=== PATIENT | male | born 1935 | race Caucasian/White ===

== ENCOUNTER → 2016-05-25 | Outpatient (CLI) | payer BC, MEDICARE ==
[~2016-05-25] MED LIST: ALLOPURINOL300 MG PO; AMARYL PO; ASPIR-LOW81 MG PO; ASPIRIN E.C. 8181 MG PO; AVAPRO TAB150 MG/TAB PO; AVAPRO75 MG PO; COZAAR 25MG25 MG/TAB PO; DEMADEX5 MG PO; FISH OIL1000 MG PO; FLOMAX 0.40.4 MG/CAP PO; INSLANT SQ; LANTUS100 U/ML SC; LASIX 20MG TABL20 MG PO; LEVEMIR SQ; LOMOTIL 0.025 M1 TAB PO; LORTAB 5/500 501 TAB PO; MIRAPEX0.5 MG PO; NAPROSYN500 MG PO; NITROSTAT0.4 MG SL; PRAVACHOL 40MG40 MG PO; QUALAQUIN324 MG PO; TUMS500 MG PO; VIAGRA100 MG PO; VITAMIN D; VITAMIN D1000 IU PO; VITAMIND3 5000 PO; Vitamin D3 PO; ZOFRAN4 M1 PO
[2016-05-25 13:59] LABS: CALCIUM 9.1 mg/dL (8.4-10.2); CREATININE, serum 2.08 mg/dL (0.66-1.25); POTASSIUM 4.6 mmol/L (3.4-5.0)
== END ==
LOC: COL.LAB 12:13
PROVIDERS: Internal Medicine
DX: E11.21 Type 2 diabetes mellitus with diabetic nephropathy (principal); Z79.4 Long term (current) use of insulin

== ENCOUNTER → 2016-08-17 | Outpatient (CLI) | payer BC, MEDICARE ==
[2016-08-17 15:54] LABS: MEAN CELL VOLUME 93 fl (80.0-100.0); MEAN CORPUSCULAR HGB CONC 32 g/dl (33.0-37.0); MEAN PLATELET VOLUME 11.1 fl (7.4-10.4); PLATELET COUNT 153 K/mm3 (130-400); RED BLOOD COUNT 3.41 M/mm3 (4.20-5.60); REDCELL DISTRIBUTION WIDTH-CV 13.9 % (11.5-14.5); WHITE BLOOD COUNT 5.8 K/mm3 (4.8-10.8)
[2016-08-17 15:56] LABS: HEMATOCRIT 31.7 % (42.0-52.0); HEMOGLOBIN 10.2 g/dl (13.5-18.0); MEAN CORPUSCULAR HEMOGLOBIN 30 pg (27.0-31.0)
[2016-08-17 16:01] LABS: CALCIUM 8.8 mg/dL (8.4-10.2); CREATININE, serum 2.16 mg/dL (0.66-1.25); POTASSIUM 4.2 mmol/L (3.4-5.0)
[2016-08-18 21:11] LABS: PROT-CREAT RATIO, URINE 1.4 (())
== END ==
LOC: COL.LAB 14:50
PROVIDERS: Internal Medicine Nephrology
DX: E11.21 Type 2 diabetes mellitus with diabetic nephropathy (principal); Z79.4 Long term (current) use of insulin; N18.2 Chronic kidney disease, stage 2 (mild); R80.8 Other proteinuria

== ENCOUNTER → 2016-12-21 | Outpatient (CLI) | payer BC, MEDICARE ==
[2016-12-21 19:13] LABS: CREATININE, serum 2.13 mg/dL (0.66-1.25); POTASSIUM 4.9 mmol/L (3.4-5.0)
== END ==
LOC: COL.LAB 17:42
PROVIDERS: Internal Medicine Nephrology
DX: N18.2 Chronic kidney disease, stage 2 (mild) (principal); R80.9 Proteinuria, unspecified

== ENCOUNTER → 2017-03-01 | Outpatient (CLI) | payer BC, MEDICARE ==
[2017-03-01 13:26] LABS: CALCIUM 8.6 mg/dL (8.4-10.2); CREATININE, serum 2.07 mg/dL (0.66-1.25); POTASSIUM 4.4 mmol/L (3.4-5.0)
== END ==
LOC: COL.LAB 12:37
PROVIDERS: Urology
DX: N18.2 Chronic kidney disease, stage 2 (mild) (principal)

== ENCOUNTER → 2017-03-26 | Outpatient (CLI) | payer BC, MEDICARE ==
[2017-03-26 12:43] LABS: CALCIUM 9.1 mg/dL (8.4-10.2)
== END ==
LOC: COL.RAD 11:20
PROVIDERS: Internal Medicine
DX: N26.1 Atrophy of kidney (terminal) (principal); R19.8 Other specified symptoms and signs involving the digestive system and abdomen; N28.1 Cyst of kidney, acquired; K80.80 Other cholelithiasis without obstruction

== ENCOUNTER → 2017-06-15 | Outpatient (CLI) | payer MEDICARE, BC ==
[~2017-06-15] MED LIST changes: -ALLOPURINOL300 MG PO; +APRESOLINE 25MG25 MG PO; +IMODIUM 2MG CAPS2 MG PO; +MELATONIN5 M1 PO; +OMEGA-3 1000 MG1 CAP PO; +PEPTO BISMOL262 MG PO; -PRAVACHOL 40MG40 MG PO; +PRAVACHOL80 MG PO; +ZYLOPRIM 300MG300 MG PO
[2017-06-15 12:46] LABS: BASO % 0.3 % (0.0-2.0); EOS # 0.2 (0.0-0.7); EOS % 3.1 % (0-4.0); GRAN # 5.4 (1.4-6.5); GRAN % 75.6 % (42.2-75.2); LYMPH % 14.1 % (20.0-51.0); MEAN CELL VOLUME 97 fl (80.0-100.0); MEAN CORPUSCULAR HGB CONC 31 g/dl (33.0-37.0); MEAN PLATELET VOLUME 10.8 fl (7.4-10.4); MONO # 0.5 (0.1-0.6); MONO % 6.5 % (1.7-9.3); PLATELET COUNT 143 K/mm3 (130-400); RED BLOOD COUNT 3.28 M/mm3 (4.20-5.60); REDCELL DISTRIBUTION WIDTH-CV 14.7 % (11.5-14.5)
[2017-06-15 12:51] LABS: HEMATOCRIT 31.7 % (42.0-52.0); HEMOGLOBIN 9.8 g/dl (13.5-18.0); MEAN CORPUSCULAR HEMOGLOBIN 30 pg (27.0-31.0)
[2017-06-15 13:01] LABS: ALBUMIN 3.6 gm/dL (3.5-5.0); BILIRUBIN,TOTAL 0.5 mg/dL (0.0-1.0); CALCIUM 9.1 mg/dL (8.4-10.2); CHOLESTEROL RISK RATIO 2.5; CREATININE, serum 2.15 mg/dL (0.66-1.25); POTASSIUM 4.7 mmol/L (3.4-5.0); TOTAL PROTEIN 6.9 gm/dL (6.4-8.2); URIC ACID 3.4 mg/dL (3.5-8.5)
[2017-06-15 19:25] LABS: MUCOUS Present /lpf; PH 5 (5-8); SQUAMOUS EPITHELIAL 0-2 /hpf; URINE APPEARANCE Clear; URINE BACTERIA Rare /hpf; URINE BILIRUBIN Negative (NEGATIVE); URINE BLOOD Negative (NEGATIVE); URINE COLOR Straw; URINE GLUCOSE Negative (NEGATIVE); URINE KETONE Negative (NEGATIVE); URINE LEUKOCYTE ESTERASE 1+ (NEGATIVE); URINE NITRATE Negative (NEGATIVE); URINE PROTEIN(semi-quant) 2+ (NEGATIVE); URINE UROBILINOGEN Negative (NEGATIVE); URINE WBC 20-50 /hpf
[2017-06-15 19:28] LABS: COLLECTION METHOD CLEAN CATCH
[2017-06-15 23:54] LABS: URINE MICROALBUMIN 95.5 mg/dL (0.0-1.7)
== END ==
LOC: COL.LAB 12:02
PROVIDERS: Internal Medicine Nephrology
DX: M10.9 Gout, unspecified (principal); K52.832 Lymphocytic colitis; E78.00 Pure hypercholesterolemia, unspecified; E11.21 Type 2 diabetes mellitus with diabetic nephropathy; Z79.4 Long term (current) use of insulin; I25.10 Atherosclerotic heart disease of native coronary artery without angina pectoris; N18.4 Chronic kidney disease, stage 4 (severe); N40.0 Benign prostatic hyperplasia without lower urinary tract symptoms; I87.2 Venous insufficiency (chronic) (peripheral)

== ENCOUNTER → 2017-06-15 | Outpatient (CLI) | payer MEDICARE, BC ==
[2017-06-15 13:02] LABS: CALCIUM 9.1 mg/dL (8.4-10.2); CREATININE, serum 2.17 mg/dL (0.66-1.25); POTASSIUM 4.8 mmol/L (3.4-5.0)
== END ==
LOC: COL.LAB 11:59
PROVIDERS: Internal Medicine
DX: M10.9 Gout, unspecified (principal); E11.21 Type 2 diabetes mellitus with diabetic nephropathy; E78.00 Pure hypercholesterolemia, unspecified; I25.10 Atherosclerotic heart disease of native coronary artery without angina pectoris; N18.4 Chronic kidney disease, stage 4 (severe); N40.0 Benign prostatic hyperplasia without lower urinary tract symptoms; I87.2 Venous insufficiency (chronic) (peripheral); K52.832 Lymphocytic colitis; N18.2 Chronic kidney disease, stage 2 (mild); Z79.4 Long term (current) use of insulin

== ENCOUNTER → 2017-07-22 | Outpatient (CLI) | payer MEDICARE, BC ==
[2017-07-22 10:14] LABS: CALCIUM 8.8 mg/dL (8.4-10.2); CREATININE, serum 2.3 mg/dL (0.66-1.25); POTASSIUM 5.2 mmol/L (3.4-5.0)
== END ==
LOC: COL.LAB 09:36
PROVIDERS: Internal Medicine Nephrology
DX: N18.2 Chronic kidney disease, stage 2 (mild) (principal)

== ENCOUNTER → 2017-10-18 | Outpatient (CLI) | payer MEDICARE, BC | LOC: COL.LAB 15:10 | DX: E11.21 Type 2 diabetes mellitus with diabetic nephropathy (principal) ==

== ENCOUNTER → 2017-10-18 | Outpatient (CLI) | payer MEDICARE, BC ==
[2017-10-18 16:06] LABS: CALCIUM 8.9 mg/dL (8.4-10.2); CREATININE, serum 2.72 mg/dL (0.66-1.25); POTASSIUM 5.3 mmol/L (3.4-5.0)
== END ==
LOC: COL.LAB 15:08
PROVIDERS: Internal Medicine Nephrology
DX: N18.2 Chronic kidney disease, stage 2 (mild) (principal)

== ENCOUNTER → 2017-12-06 | Outpatient (CLI) | payer MEDICARE, BC ==
[2017-12-06 14:13] LABS: CALCIUM 8.6 mg/dL (8.4-10.2); CREATININE, serum 2.33 mg/dL (0.66-1.25); POTASSIUM 4.5 mmol/L (3.4-5.0)
== END ==
LOC: COL.LAB 13:40
PROVIDERS: Internal Medicine Nephrology
DX: N18.2 Chronic kidney disease, stage 2 (mild) (principal)

== ENCOUNTER → 2018-02-16 | Outpatient (CLI) | payer MEDICARE, BC ==
[2018-02-16 12:32] LABS: HEMATOCRIT 29.9 % (42.0-52.0); HEMOGLOBIN 9.6 g/dl (13.5-18.0)
[2018-02-16 12:39] LABS: CALCIUM 8.7 mg/dL (8.4-10.2); CREATININE, serum 2.42 mg/dL (0.66-1.25); POTASSIUM 4.6 mmol/L (3.4-5.0)
[2018-02-16 13:12] LABS: URINE PROTEIN:CREAT RATIO 4.02 (0.00-0.14)
== END ==
LOC: COL.LAB 11:41
PROVIDERS: Internal Medicine Nephrology
DX: E11.22 Type 2 diabetes mellitus with diabetic chronic kidney disease (principal); I12.9 Hypertensive chronic kidney disease with stage 1 through stage 4 chronic kidney disease, or unspecified chronic kidney disease; N18.2 Chronic kidney disease, stage 2 (mild); E11.21 Type 2 diabetes mellitus with diabetic nephropathy; R60.0 Localized edema

== ENCOUNTER → 2018-03-16 | Outpatient (CLI) | payer MEDICARE, BC ==
[2018-03-16 10:46] LABS: CALCIUM 8.7 mg/dL (8.4-10.2); CREATININE, serum 2.48 mg/dL (0.66-1.25); POTASSIUM 4.6 mmol/L (3.4-5.0)
== END ==
LOC: COL.LAB 09:02
PROVIDERS: Internal Medicine Nephrology
DX: E87.5 Hyperkalemia (principal)

== ENCOUNTER → 2018-04-14 | Outpatient (CLI) | payer MEDICARE, BC ==
[2018-04-14 08:31] LABS: CALCIUM 8.7 mg/dL (8.4-10.2); CREATININE, serum 2.53 mg/dL (0.66-1.25); POTASSIUM 5.2 mmol/L (3.4-5.0)
== END ==
LOC: COL.LAB 07:33
PROVIDERS: Internal Medicine Nephrology
DX: E87.5 Hyperkalemia (principal)

== ENCOUNTER → 2018-05-06 | Outpatient (CLI) | payer MEDICARE, BC | LOC: COL.RAD 07:36 | DX: R11.10 Vomiting, unspecified (principal); R10.9 Unspecified abdominal pain | CPT/HCPCS: A9541 ==

== ENCOUNTER → 2018-05-18 | Outpatient (CLI) | payer MEDICARE, BC ==
[~2018-05-18] MED LIST changes: +CEPHALEXIN500 M1 PO; +NORVASC2.5 MG PO; +SODIUM BICARBO650 MG PO; +TOPROL XL 50MG50 MG PO; +ULTRAM 50MG TAB50 MG PO; +VELTASSA8.4 GM PO
[2018-05-18 12:58] LABS: CALCIUM 8.6 mg/dL (8.4-10.2); CREATININE, serum 2.6 mg/dL (0.66-1.25)
[2018-05-18 12:58] LABS: URINE PROTEIN:CREAT RATIO 2.49 (0.00-0.14)
== END ==
LOC: COL.LAB 11:48
PROVIDERS: Internal Medicine Nephrology
DX: N18.2 Chronic kidney disease, stage 2 (mild) (principal); I12.9 Hypertensive chronic kidney disease with stage 1 through stage 4 chronic kidney disease, or unspecified chronic kidney disease; R80.8 Other proteinuria

== ENCOUNTER → 2018-06-20 | Outpatient (CLI) | payer MEDICARE, BC ==
[2018-06-20 14:49] LABS: HEMATOCRIT 25.9 % (42.0-52.0); HEMOGLOBIN 8.2 g/dl (13.5-18.0)
[2018-06-20 14:54] LABS: CALCIUM 8.8 mg/dL (8.4-10.2); CREATININE, serum 2.81 mg/dL (0.66-1.25); POTASSIUM 4.9 mmol/L (3.4-5.0)
== END ==
LOC: COL.LAB 14:13
PROVIDERS: Internal Medicine Nephrology
DX: I12.9 Hypertensive chronic kidney disease with stage 1 through stage 4 chronic kidney disease, or unspecified chronic kidney disease (principal); N18.2 Chronic kidney disease, stage 2 (mild); D63.1 Anemia in chronic kidney disease

== ENCOUNTER 2018-07-21 14:59 | Outpatient (CLI) | payer MEDICARE, BC ==
[2018-07-21 15:46] LABS: HEMATOCRIT 29.1 % (42.0-52.0); HEMOGLOBIN 9.1 g/dl (13.5-18.0)
== END 2018-07-21 16:44 | disposition home or self-care (01) ==
LOC: COL.LAB 14:59
PROVIDERS: Internal Medicine Nephrology
DX: N18.3 Chronic kidney disease, stage 3 (moderate) (principal); D63.1 Anemia in chronic kidney disease

== ENCOUNTER → 2018-07-30 | Outpatient (CLI) | payer MEDICARE, BC ==
[2018-07-30 10:27] LABS: HEMATOCRIT 31.8 % (42.0-52.0); HEMOGLOBIN 9.8 g/dl (13.5-18.0)
[2018-07-30 10:50] LABS: CHOLESTEROL RISK RATIO 2.2; URIC ACID 3.7 mg/dL (3.5-8.5)
[2018-08-02 21:00] LABS: CALCIUM 9.1 mg/dL (8.4-10.2); CREATININE, serum 2.8 mg/dL (0.66-1.25); POTASSIUM 5.2 mmol/L (3.4-5.0)
== END ==
LOC: COL.LAB 09:08
PROVIDERS: Internal Medicine Nephrology
DX: N18.3 Chronic kidney disease, stage 3 (moderate) (principal); D63.1 Anemia in chronic kidney disease; E11.21 Type 2 diabetes mellitus with diabetic nephropathy; I12.9 Hypertensive chronic kidney disease with stage 1 through stage 4 chronic kidney disease, or unspecified chronic kidney disease; Z79.4 Long term (current) use of insulin

== ENCOUNTER → 2018-07-30 | Outpatient (CLI) | payer MEDICARE, BC | LOC: COL.LAB 09:06 | DX: E11.21 Type 2 diabetes mellitus with diabetic nephropathy (principal); Z79.4 Long term (current) use of insulin; I10 Essential (primary) hypertension ==

== ENCOUNTER → 2018-08-22 | Outpatient (CLI) | payer OTHER, MEDICARE, BC ==
[2018-08-22 20:38] LABS: MEAN CELL VOLUME 97 fl (80.0-100.0); MEAN CORPUSCULAR HGB CONC 31 g/dl (33.0-37.0); MEAN PLATELET VOLUME 10.5 fl (7.4-10.4); PLATELET COUNT 140 K/mm3 (130-400); RED BLOOD COUNT 3.26 M/mm3 (4.20-5.60); REDCELL DISTRIBUTION WIDTH-CV 15.2 % (11.5-14.5)
[2018-08-22 20:42] LABS: CALCIUM 8.7 mg/dL (8.4-10.2); CREATININE, serum 3.19 (0.66-1.25)
[2018-08-22 20:45] LABS: HEMATOCRIT 31.6 % (42.0-52.0); HEMOGLOBIN 9.8 g/dl (13.5-18.0); MEAN CORPUSCULAR HEMOGLOBIN 30 pg (27.0-31.0)
[2018-08-23 10:59] LABS: ALBUMIN 3.2 gm/dL (3.5-5.0); BILIRUBIN UNCONJUGATED 0.1 mg/dL (0.0-1.1); BILIRUBIN,DIRECT 0.1 mg/dL (0.0-0.4); BILIRUBIN,TOTAL 0.3 mg/dL (0.0-1.0); TOTAL PROTEIN 6.6 gm/dL (6.4-8.2)
== END ==
LOC: COL.LAB 19:36 → COL.RAD 19:36
PROVIDERS: Internal Medicine Interventional Cardiology
DX: I82.A13 Acute embolism and thrombosis of axillary vein, bilateral (principal)

== ENCOUNTER → 2018-08-24 | Outpatient (CLI) | payer MEDICARE, BC ==
[2018-08-25 12:16] LABS: ALBUMIN 3.6 gm/dL (3.5-5.0); CREATININE, serum 2.86 (0.66-1.25); PHOSPHOROUS 4.5 mg/dL (2.5-4.5); POTASSIUM 5.6 mmol/L (3.4-5.0)
== END ==
LOC: COL.LAB 11:37
PROVIDERS: Internal Medicine Nephrology
DX: N18.4 Chronic kidney disease, stage 4 (severe) (principal)

== ENCOUNTER → 2018-09-05 | Outpatient (CLI) | payer MEDICARE, BC ==
[2018-09-05 15:11] LABS: ALBUMIN 3.3 gm/dL (3.5-5.0); CALCIUM 8.6 mg/dL (8.4-10.2); CREATININE, serum 2.93 (0.66-1.25); PHOSPHOROUS 3.8 mg/dL (2.5-4.5); POTASSIUM 4.3 mmol/L (3.4-5.0)
== END ==
LOC: COL.LAB 14:18
PROVIDERS: Internal Medicine Nephrology
DX: I12.9 Hypertensive chronic kidney disease with stage 1 through stage 4 chronic kidney disease, or unspecified chronic kidney disease (principal); N18.4 Chronic kidney disease, stage 4 (severe)

== ENCOUNTER 2018-09-14 15:30 | Outpatient (RCR) | payer OTHER, MEDICARE, BC ==
[2018-06-23 14:50] VITALS: BP 118/46; PULSE 82; TEMP 97.4
[2018-07-08 15:00] LABS: HEMOGLOBIN 9.2 g/dl (13.5-18.0)
[2018-07-08 15:01] LABS: HEMATOCRIT 28.9 % (42.0-52.0)
[2018-07-21 16:34] VITALS: BP 136/59; PULSE 77; TEMP 98
[2018-08-03 15:46] LABS: HEMATOCRIT 28.9 % (42.0-52.0); HEMOGLOBIN 9.3 g/dl (13.5-18.0)
[2018-08-03 16:08] VITALS: BP 128/53; PULSE 68; TEMP 97.8
[2018-08-18 15:17] LABS: HEMATOCRIT 32.2 % (42.0-52.0)
[2018-08-18 16:21] VITALS: BP 168/64; PULSE 83; TEMP 97.4
[2018-09-01 15:31] VITALS: BP 149/70; PULSE 83; TEMP 98.3
[~2018-09-14] VITALS: Ht 180.3 cm; Wt 90.0 kg
[2018-09-14 15:40] VITALS: BP 158/61; PULSE 71; TEMP 98.7
[2018-09-14 15:46] LABS: HEMATOCRIT 33.1 % (42.0-52.0); HEMOGLOBIN 10.5 g/dl (13.5-18.0)
== END 2018-09-21 | disposition home or self-care (01) ==
LOC: EUO
PROVIDERS: Internal Medicine Nephrology
DX: N18.3 Chronic kidney disease, stage 3 (moderate) (principal); D63.1 Anemia in chronic kidney disease
CPT/HCPCS: J0881; J2916

== ENCOUNTER → 2018-10-24 | Outpatient (CLI) | payer MEDICARE, BC ==
[2018-10-24 16:16] LABS: ALBUMIN 3.2 gm/dL (3.5-5.0); CALCIUM 8.8 mg/dL (8.4-10.2); CREATININE, serum 3.09 (0.66-1.25); POTASSIUM 4.9 mmol/L (3.4-5.0)
== END ==
LOC: COL.LAB 15:15 → ZCOL.LAB 15:15
PROVIDERS: Internal Medicine Nephrology
DX: N18.4 Chronic kidney disease, stage 4 (severe) (principal); R53.83 Other fatigue

== ENCOUNTER 2018-12-10 19:44 | Inpatient (IN) | payer MEDICARE, BC ==
[~2018-12-10] VITALS: Ht 177.8 cm; Wt 87.4 kg
[2018-12-10] MEDS ORDERED: ELIQUIS 2.5 PO (20:21)
[2018-12-10] MEDS ORDERED: APRESOLINE 25MG25 MG PO (20:28)
[2018-12-10 20:39] LABS: HEMOGLOBIN 10.6 g/dl (13.5-18.0); MEAN CELL VOLUME 97 fl (80.0-100.0); MEAN CORPUSCULAR HEMOGLOBIN 30 pg (27.0-31.0); MEAN CORPUSCULAR HGB CONC 31 g/dl (33.0-37.0); MEAN PLATELET VOLUME 11.7 fl (7.4-10.4); PLATELET COUNT 139 K/mm3 (130-400); RED BLOOD COUNT 3.54 M/mm3 (4.20-5.60); REDCELL DISTRIBUTION WIDTH-CV 16.7 % (11.5-14.5)
[2018-12-10 20:46] LABS: HEMATOCRIT 34.4 % (42.0-52.0)
[2018-12-10 20:48] LABS: INR 1.5 (0.8-3.0); PROTHROMBIN TIME 17.4 SECONDS (9.7-12.8)
[2018-12-10 20:52] LABS: BILIRUBIN,TOTAL 0.8 mg/dL (0.0-1.0); CALCIUM 8.5 mg/dL (8.4-10.2); CREATININE, serum 2.65 (0.66-1.25); TOTAL PROTEIN 6.4 gm/dL (6.4-8.2)
[2018-12-10 21:20] LABS: ANISOCYTOSIS 1+; BAND 3 % (0-10); LYMPHOCYTE 3 % (20.0-51.0); NEUTROPHILS 93 % (42.0-75.2); PLATELET ESTIMATE NORMAL (NORMAL)
[2018-12-10 21:31] LABS: COLLECTION METHOD CLEAN CATCH
[2018-12-10 21:39] LABS: MUCOUS Present /lpf; PH 5 (5-8); SQUAMOUS EPITHELIAL 0-2 /hpf; URINE APPEARANCE Clear; URINE BACTERIA Rare /hpf; URINE BILIRUBIN Negative (NEGATIVE); URINE BLOOD Negative (NEGATIVE); URINE COLOR Yellow; URINE GLUCOSE 1+ (NEGATIVE); URINE KETONE Negative (NEGATIVE); URINE LEUKOCYTE ESTERASE Negative (NEGATIVE); URINE NITRATE Negative (NEGATIVE); URINE PROTEIN(semi-quant) 3+ (NEGATIVE); URINE UROBILINOGEN Negative (NEGATIVE)
[2018-12-11] VITALS (7 sets, daily range): BP systolic 137–148; BP diastolic 26–60; PULSE 61–75; TEMP 97.6–98.5
--- NOTE | 2018-12-11 00:50 | NUR ---
pt arrived to medical unit. a+ox4. oriented to room and staff. given sandwich box reports no needs at thsi time.
[2018-12-11] MEDS ORDERED: CILOXAN .3% EY2.5 ML (01:37)
[2018-12-11 04:16] LABS: C-REACTIVE PROTEIN 4.3 mg/dL (0.0-0.9)
[2018-12-11 06:32] LABS: BASO % 0.2 % (0.0-2.0); GRAN # 9.3 (1.4-6.5); GRAN % 89.3 % (42.2-75.2); LYMPH # 0.5 (1.2-3.4); LYMPH % 4.9 % (20.0-51.0); MEAN CELL VOLUME 97 fl (80.0-100.0); MEAN CORPUSCULAR HEMOGLOBIN 29 pg (27.0-31.0); MEAN CORPUSCULAR HGB CONC 31 g/dl (33.0-37.0); MEAN PLATELET VOLUME 11.6 fl (7.4-10.4); MONO # 0.5 (0.1-0.6); MONO % 5.1 % (1.7-9.3); PLATELET COUNT 121 K/mm3 (130-400)
--- NOTE | 2018-12-11 06:39 | NUR ---
PT RESTING OFF AND ON THROUGHOUT NIGHT WITH AT BEDSIDE. A+OX4. NO PAIN. NO NAUSEA. WEAKNESS AND DROWSINESS REPORTED. IV TO THE RIGHT UPPER ARM FLUSHES WELL, NO REDNESS, NO SWELLING. IV FLUIDS RUNNING AT ORDERED RATE. HEART RRR. LUNG BASES DIMINISHES. BOWEL SOUNDS HEAD THROUGHOUT. RIGHT LOWER EXTREMITY 2+ EDEMA NOTED WITH REDNESS. LEFT LOWER EX 1+ EDEMA NOTED. NO NEEDS AT THIS TIME. CALL LIGHT IN REACH.
[2018-12-11 06:41] LABS: ALBUMIN 2.7 gm/dL (3.5-5.0); BILIRUBIN,TOTAL 0.8 mg/dL (0.0-1.0); CALCIUM 8.2 mg/dL (8.4-10.2); CREATININE, serum 2.63 (0.66-1.25); POTASSIUM 4.9 mmol/L (3.4-5.0); TOTAL PROTEIN 5.8 gm/dL (6.4-8.2)
[2018-12-11 06:54] LABS: HEMATOCRIT 32.8 % (42.0-52.0)
[2018-12-11 07:17] LABS: TROPONIN-I 6 HR POST INITIAL 0.132 ng/mL (0.000-0.034)
--- NOTE | 2018-12-11 11:47 | NUR ---
Plan to retun home with Angela Landline. Patient reports that they live locally and the pateint uses a cane and has a pacemaker. Patient reports PCP as Dr. Garcias with [facility] in Feb. Patient denies having or wanting a DPOA. Patient reports that his Son Dr. Oneil is heis EMR contact at . Patient indicated that the RX is obtained at [facility]. Patient declined [facility]. Will continue to follow care if need arise.
--- NOTE | 2018-12-11 18:30 | NUR ---
Patient has been doing well today. Minimal complaints of pain. No complaints of nausea. His pain is mostly in his RLE from chronic pain. He is aware he is NPO after midnight and has not had any caffiene since lunch time when his son had already given a coke for lunch. Patient sat up in the most the am but has been sleeping most the afternoon. No other changes at this time. Call light within reach.
[2018-12-12] VITALS (8 sets, daily range): BP systolic 131–171; BP diastolic 45–91; PULSE 71–83; TEMP 97.4–98
[2018-12-12 06:34] LABS: BASO % 0.2 % (0.0-2.0); EOS # 0.2 (0.0-0.7); EOS % 3.2 % (0-4.0); GRAN # 4.3 (1.4-6.5); GRAN % 75.8 % (42.2-75.2); LYMPH # 0.7 (1.2-3.4); MEAN CELL VOLUME 96 fl (80.0-100.0); MEAN CORPUSCULAR HGB CONC 31 g/dl (33.0-37.0); MEAN PLATELET VOLUME 11.7 fl (7.4-10.4); MONO # 0.5 (0.1-0.6); MONO % 8.3 % (1.7-9.3); PLATELET COUNT 110 K/mm3 (130-400); REDCELL DISTRIBUTION WIDTH-CV 16.6 % (11.5-14.5)
[2018-12-12 06:39] LABS: ALBUMIN 2.4 gm/dL (3.5-5.0); BILIRUBIN,TOTAL 0.4 mg/dL (0.0-1.0); CREATININE, serum 2.61 (0.66-1.25); HEMATOCRIT 30.6 % (42.0-52.0); HEMOGLOBIN 9.5 g/dl (13.5-18.0); MEAN CORPUSCULAR HEMOGLOBIN 30 pg (27.0-31.0); POTASSIUM 4.6 mmol/L (3.4-5.0); TOTAL PROTEIN 5.4 gm/dL (6.4-8.2)
--- NOTE | 2018-12-12 08:10 | NUR ---
Pt left for tianna scan at this time.
--- NOTE | 2018-12-12 11:00 | NUR ---
Pt assessment complete. Pt back from procedures at this time. He denies any N/V/D. Pt denies any pain. Breathing even and unlabored on RA. Pt states he is feeling much better than at admission. POC discussed with patient who verbalizes understanding. IVF connected, no needs at this time. Call light within reach.
[2018-12-12] MEDS ORDERED: IMDUR 30MG30 MG/TAB PO (16:23)
[2018-12-12] MEDS ORDERED: TOPROL XL 25MG25 MG PO (16:23)
[2018-12-12] MEDS ORDERED: OMNICEF 300MG300 MG PO (16:24)
--- NOTE | 2018-12-12 17:57 | NUR ---
Discharge paperwork and instructions reviewed with patient. All questions answered at this time. IV to RUE dc'd catheter tip intact. Pt walked out of facility at this time.
[2019-01-17] MEDS ORDERED: IMDUR 30MG30 MG/TAB PO (17:47)
[2019-01-17] MEDS ORDERED: TOPROL XL 25MG25 MG PO (17:48)
[2019-01-17] MEDS ORDERED: SODIUM BICARBO650 MG PO (17:57)
== END 2018-12-12 17:58 | disposition home or self-care (01) | DRG 872 ==
LOC: COL.ER 19:44 → MEDICAL 23:22
PROVIDERS: Emergency Medicine; Nurse Practitioner Family; ADMIT Student in an Organized Health Care Education/Training Program
DX: A41.9 Sepsis, unspecified organism (principal); L03.115 Cellulitis of right lower limb; J98.11 Atelectasis; J90 Pleural effusion, not elsewhere classified; N18.4 Chronic kidney disease, stage 4 (severe); E87.2 Acidosis; I42.9 Cardiomyopathy, unspecified; I50.22 Chronic systolic (congestive) heart failure; I13.0 Hypertensive heart and chronic kidney disease with heart failure and stage 1 through stage 4 chronic kidney disease, or unspecified chronic kidney disease; E78.5 Hyperlipidemia, unspecified; I25.10 Atherosclerotic heart disease of native coronary artery without angina pectoris; I48.91 Unspecified atrial fibrillation; E11.22 Type 2 diabetes mellitus with diabetic chronic kidney disease; N40.0 Benign prostatic hyperplasia without lower urinary tract symptoms; M10.9 Gout, unspecified; I87.2 Venous insufficiency (chronic) (peripheral); E11.51 Type 2 diabetes mellitus with diabetic peripheral angiopathy without gangrene; E11.21 Type 2 diabetes mellitus with diabetic nephropathy; I44.1 Atrioventricular block, second degree; E87.5 Hyperkalemia; D63.1 Anemia in chronic kidney disease; M54.12 Radiculopathy, cervical region; R53.1 Weakness; Z79.82 Long term (current) use of aspirin; Z79.4 Long term (current) use of insulin; Z79.01 Long term (current) use of anticoagulants; Z95.0 Presence of cardiac pacemaker; Z95.1 Presence of aortocoronary bypass graft; Z87.891 Personal history of nicotine dependence; Z88.2 Allergy status to sulfonamides; Z88.0 Allergy status to penicillin
CPT/HCPCS: 99222-AI; 99239; A9500; J2185; J2785; J3370; J7030; J7050

== ENCOUNTER 2018-12-19 15:00 | Outpatient (RCR) | payer MEDICARE, BC ==
[2018-09-28 15:22] LABS: HEMATOCRIT 34.6 % (42.0-52.0)
[2018-09-28 15:29] VITALS: BP 151/57; PULSE 70; TEMP 97.2
[2018-10-20 16:20] VITALS: BP 128/66; PULSE 80; TEMP 97.4
[2018-11-03 14:52] VITALS: BP 142/56; PULSE 72; TEMP 98
[2018-11-03 15:21] LABS: HEMOGLOBIN 10.2 g/dl (13.5-18.0)
[2018-11-03 15:24] LABS: HEMATOCRIT 33.4 % (42.0-52.0)
[2018-11-17 15:16] VITALS: BP 140/64; PULSE 73; TEMP 98
[2018-12-01 15:44] VITALS: BP 1141/93; PULSE 77; TEMP 98
[2018-12-01 16:30] LABS: HEMATOCRIT 31.5 % (42.0-52.0); HEMOGLOBIN 9.7 g/dl (13.5-18.0)
[~2018-12-19] VITALS: Ht 180.3 cm; Wt 84.5 kg
[~2018-12-19 15:00] MED LIST changes: +CILOXAN .3% EY2.5 ML; +ELIQUIS 2.5 PO; +IMDUR 30MG30 MG/TAB PO; +OMNICEF 300MG300 MG PO; +TOPROL XL 25MG25 MG PO
[2018-12-19 15:07] LABS: HEMATOCRIT 30.4 % (42.0-52.0); HEMOGLOBIN 9.4 g/dl (13.5-18.0)
[2018-12-19 15:48] VITALS: BP 110/88; PULSE 72; TEMP 98.6
[2018-12-19 15:56] LABS: ALBUMIN 2.8 gm/dL (3.5-5.0); CREATININE, serum 2.71 (0.66-1.25); PHOSPHOROUS 5.5 mg/dL (2.5-4.5)
[2019-01-17] MEDS ORDERED: IMDUR 30MG30 MG/TAB PO (17:47)
[2019-01-17] MEDS ORDERED: TOPROL XL 25MG25 MG PO (17:48)
[2019-01-17] MEDS ORDERED: SODIUM BICARBO650 MG PO (17:57)
== END 2018-12-27 | disposition home or self-care (01) ==
LOC: EUO
PROVIDERS: Internal Medicine Nephrology
DX: I12.9 Hypertensive chronic kidney disease with stage 1 through stage 4 chronic kidney disease, or unspecified chronic kidney disease (principal); N18.4 Chronic kidney disease, stage 4 (severe); D63.1 Anemia in chronic kidney disease; R60.0 Localized edema; Z79.899 Other long term (current) drug therapy
CPT/HCPCS: J0881

== ENCOUNTER 2019-01-31 11:00 | Outpatient (RCR) | payer MEDICARE, BC ==
[2019-01-02 15:20] LABS: HEMOGLOBIN 10.3 g/dl (13.5-18.0)
[2019-01-02 15:29] LABS: HEMATOCRIT 33.6 % (42.0-52.0)
[2019-01-02 16:53] VITALS: BP 146/66; PULSE 76; TEMP 97.2
[2019-01-17 14:29] VITALS: BP 113/67; PULSE 63; TEMP 97.5
[~2019-01-31] VITALS: Ht 180.3 cm; Wt 83.1 kg
[2019-01-31 11:05] LABS: HEMOGLOBIN 11.2 g/dl (13.5-18.0)
[2019-01-31 11:06] LABS: HEMATOCRIT 36.2 % (42.0-52.0)
[2019-01-31 11:08] VITALS: BP 128/59; PULSE 76; TEMP 97.3
--- NOTE | 2019-01-31 11:53 | NUR ---
Dr. Delacruz at pt's bs, verbal order for 40 mcg aranesp sq. order entered and pharmacy called.
--- NOTE | 2019-01-31 12:45 | NUR ---
Pt ambulatory to exit with son and , Per Written orders from Dr. Delacruz, pt was scheduled for next appointment in 1 month 02/28/19 at 11:00... card given to .
== END 2019-01-31 12:50 | disposition home or self-care (01) ==
LOC: EUO 11:00
PROVIDERS: Internal Medicine Nephrology
DX: N18.3 Chronic kidney disease, stage 3 (moderate) (principal); D63.1 Anemia in chronic kidney disease; Z79.899 Other long term (current) drug therapy
CPT/HCPCS: J0881

== ENCOUNTER 2019-02-28 11:25 | Outpatient (CLI) | payer MEDICARE, BC ==
[~2019-02-28] VITALS: Ht 180.3 cm; Wt 83.0 kg
[2019-02-28 11:39] LABS: HEMOGLOBIN 10.6 g/dl (13.5-18.0)
[2019-02-28 11:40] LABS: HEMATOCRIT 34.1 % (42.0-52.0)
[2019-02-28 11:47] VITALS: BP 150/69; PULSE 61; TEMP 97.5
[2019-02-28] MEDS ORDERED: LEVEMIR SQ (12:10)
== END 2019-02-28 12:27 | disposition home or self-care (01) ==
LOC: EUO 11:25
PROVIDERS: Internal Medicine Nephrology
DX: D63.1 Anemia in chronic kidney disease (principal); N18.4 Chronic kidney disease, stage 4 (severe); Z79.899 Other long term (current) drug therapy
CPT/HCPCS: J0881

== ENCOUNTER 2019-04-25 13:33 | Outpatient (CLI) | payer MEDICARE, BC ==
[2019-04-25 14:08] LABS: HEMOGLOBIN 10.1 g/dl (13.5-18.0)
[2019-04-25 14:09] LABS: HEMATOCRIT 31.6 % (42.0-52.0)
[2019-04-25 14:14] VITALS: BP 143/69; PULSE 82; TEMP 97.6
[2019-04-25] MEDS ORDERED: ROCALTROL0.5 MCG PO (15:02)
== END 2019-04-25 15:22 | disposition home or self-care (01) ==
LOC: EUO 13:33
PROVIDERS: Internal Medicine Nephrology
DX: N18.4 Chronic kidney disease, stage 4 (severe) (principal); D63.1 Anemia in chronic kidney disease; E11.21 Type 2 diabetes mellitus with diabetic nephropathy; Z79.4 Long term (current) use of insulin
CPT/HCPCS: J0881

== ENCOUNTER → 2019-05-15 | Outpatient (CLI) | payer MEDICARE, BC ==
[~2019-05-15] MED LIST changes: +ROCALTROL0.5 MCG PO
== END ==
LOC: COL.VAS 08:59
DX: N18.4 Chronic kidney disease, stage 4 (severe) (principal)

== ENCOUNTER 2019-05-22 14:45 | Outpatient (CLI) | payer MEDICARE, BC ==
[2019-05-22 15:12] LABS: HEMOGLOBIN 10.7 g/dl (13.5-18.0)
[2019-05-22 15:13] VITALS: BP 142/60; PULSE 58; TEMP 97.4
[2019-05-22 15:16] LABS: HEMATOCRIT 33.8 % (42.0-52.0)
== END 2019-05-22 15:48 | disposition home or self-care (01) ==
LOC: EUO 14:45
PROVIDERS: Internal Medicine Nephrology
DX: D63.1 Anemia in chronic kidney disease (principal); N18.4 Chronic kidney disease, stage 4 (severe); Z79.899 Other long term (current) drug therapy
CPT/HCPCS: J0881

== ENCOUNTER 2019-06-13 10:20 | Day surgery (SDC) | payer MEDICARE, BC ==
[~2019-06-13] VITALS: Ht 177.8 cm; Wt 83.4 kg
[2019-06-13 10:51] VITALS: BP 140/69; PULSE 83; TEMP 97.6
[2019-06-13 11:22] LABS: CALCIUM 8.9 mg/dL (8.4-10.2); CREATININE, serum 2.96 (0.66-1.25); POTASSIUM 4.2 mmol/L (3.4-5.0)
[2019-06-13] MEDS ORDERED: ARANESP0.06 MG/0. SQ (11:29)
[2019-06-13] MEDS ORDERED: IMODIUM 2MG CAPS2 MG PO (11:31)
[2019-06-13] MEDS ORDERED: CALCITRIOL PO (11:32)
--- NOTE | 2019-06-13 12:30 | NUR ---
Patient assisted up to the bathroom with use of cane. Remains NPO and awaits surgery. Family in the room.
[2019-06-13 16:00] VITALS: BP 144/54; PULSE 60; TEMP 97.2
--- NOTE | 2019-06-13 16:00 | NUR ---
TO RM 4 PER CART FROM OR. ALERT ORIENTED X3, TALKING TO STAFF,SON AND . RECEIVED ICE CHIPS. DRESSING OVER FISTULA SITE ON L ARM. DENIES PAIN OR DISCOMFORT. DENIES NAUSEA OR VOMITING.
[2019-06-13 16:15] VITALS: BP 155/66; PULSE 60
--- NOTE | 2019-06-13 16:15 | NUR ---
RECEIVED OJ AND DRANK 100%
[2019-06-13 16:30] VITALS: BP 136/60; PULSE 61
--- NOTE | 2019-06-13 16:30 | NUR ---
RECEIVED CHOCOLATE PUDDING. NO CHANGES PATIENT MOVING ARM DRESSING INTACT WITHOUT DRAINAGE.
[2019-06-13 17:00] VITALS: BP 151/55; PULSE 63
--- NOTE | 2019-06-13 17:00 | NUR ---
RECEIVED DISCHARGE INSTRUCTIONS AND VERBALIZED UNDERSTANDING. DR SAGASTUME TALKED TO DR OREILLY (PATIENT SON). PATIENT, AND SON VERBALIZED UNDERSTANDING. DISCONTINUED IV AND INT. ASSISTED PATIENT DRESSED AND SON WENT TO GET THE CAR.
--- NOTE | 2019-06-13 17:22 | NUR ---
DISCHARGED PER WC BY NURSING STAFF TO PRIVATE CAR IN CARE OF SON- DR POORNIMA OREILLY.
== END 2019-06-13 17:24 | disposition home or self-care (01) ==
LOC: SDCO 10:20
PROVIDERS: Surgery
DX: I13.0 Hypertensive heart and chronic kidney disease with heart failure and stage 1 through stage 4 chronic kidney disease, or unspecified chronic kidney disease (principal); I50.9 Heart failure, unspecified; N18.4 Chronic kidney disease, stage 4 (severe); E11.22 Type 2 diabetes mellitus with diabetic chronic kidney disease; Z95.1 Presence of aortocoronary bypass graft; Z95.0 Presence of cardiac pacemaker; Z88.1 Allergy status to other antibiotic agents; Z88.0 Allergy status to penicillin; Z79.899 Other long term (current) drug therapy; Z79.01 Long term (current) use of anticoagulants; Z79.82 Long term (current) use of aspirin; I25.10 Atherosclerotic heart disease of native coronary artery without angina pectoris
CPT/HCPCS: J0690; J1644; J2704; J7030

== ENCOUNTER 2019-06-19 15:50 | Outpatient (CLI) | payer MEDICARE, BC ==
[2019-06-19 15:33] VITALS: BP 124/65; PULSE 74; TEMP 97.3
[~2019-06-19 15:50] MED LIST changes: +ARANESP0.06 MG/0. SQ; +CALCITRIOL PO
[2019-06-19 16:12] LABS: CALCIUM 8.7 mg/dL (8.4-10.2); CREATININE, serum 2.99 (0.66-1.25); PHOSPHOROUS 3.3 mg/dL (2.5-4.5); POTASSIUM 4.3 mmol/L (3.4-5.0)
[2019-06-19 16:41] LABS: HEMATOCRIT 30.3 % (42.0-52.0); HEMOGLOBIN 9.5 g/dl (13.5-18.0)
[2019-06-19 23:21] LABS: URINE PROTEIN:CREAT RATIO 1.76 (0.00-0.14)
== END 2019-06-19 17:56 | disposition home or self-care (01) ==
LOC: EUO 15:50
PROVIDERS: Internal Medicine Nephrology
DX: N18.4 Chronic kidney disease, stage 4 (severe) (principal); D63.1 Anemia in chronic kidney disease
CPT/HCPCS: J0881

== ENCOUNTER 2019-07-21 14:59 | Outpatient (CLI) | payer MEDICARE, BC ==
[~2019-07-21] VITALS: Ht 177.8 cm; Wt 91.8 kg
[2019-07-21 15:39] LABS: HEMATOCRIT 32.8 % (42.0-52.0)
[2019-07-21 16:07] VITALS: BP 133/67; PULSE 82; TEMP 97.7
== END 2019-07-21 16:14 | disposition home or self-care (01) ==
LOC: EUO 14:59
PROVIDERS: Internal Medicine Nephrology
DX: N18.4 Chronic kidney disease, stage 4 (severe) (principal); D63.1 Anemia in chronic kidney disease
CPT/HCPCS: J0881

== ENCOUNTER 2019-09-11 09:03 | Outpatient (CLI) | payer MEDICARE, BC ==
[~2019-09-11] VITALS: Ht 177.8 cm; Wt 86.5 kg
[2019-09-11 09:53] LABS: MEAN CELL VOLUME 97 fl (80.0-100.0); MEAN CORPUSCULAR HGB CONC 31 g/dl (33.0-37.0); MEAN PLATELET VOLUME 12.3 fl (7.4-10.4); PLATELET COUNT 101 K/mm3 (130-400); RED BLOOD COUNT 3.13 M/mm3 (4.20-5.60); REDCELL DISTRIBUTION WIDTH-CV 14.6 % (11.5-14.5)
[2019-09-11 10:04] LABS: HEMATOCRIT 30.4 % (42.0-52.0); HEMOGLOBIN 9.4 g/dl (13.5-18.0)
[2019-09-11 10:05] LABS: HEMATOCRIT 30.4 % (42.0-52.0); HEMOGLOBIN 9.4 g/dl (13.5-18.0); MEAN CORPUSCULAR HEMOGLOBIN 30 pg (27.0-31.0)
[2019-09-11 10:09] LABS: ALBUMIN 3.1 gm/dL (3.5-5.0); BILIRUBIN,TOTAL 0.5 mg/dL (0.0-1.0); CALCIUM 8.8 mg/dL (8.4-10.2); CREATININE, serum 3.35 (0.66-1.25); POTASSIUM 3.8 mmol/L (3.4-5.0); TOTAL PROTEIN 6.4 gm/dL (6.4-8.2)
[2019-09-11 10:16] LABS: ERYTHROCYTE SEDIMENTATION RATE 13 mm/hr (0-30)
[2019-09-11 10:35] LABS: URINE PROTEIN:CREAT RATIO 2.28 (0.00-0.14)
[2019-09-11 11:08] LABS: ALBUMIN 3.1 gm/dL (3.5-5.0); CALCIUM 8.8 mg/dL (8.4-10.2); CREATININE, serum 3.42 (0.66-1.25); PHOSPHOROUS 4.2 mg/dL (2.5-4.5); POTASSIUM 3.8 mmol/L (3.4-5.0)
[2019-09-11 11:12] VITALS: BP 105/68; PULSE 101; TEMP 98.9
== END 2019-09-11 15:53 | disposition home or self-care (01) ==
LOC: EUO 09:03
PROVIDERS: Internal Medicine; Internal Medicine Nephrology
DX: N18.4 Chronic kidney disease, stage 4 (severe) (principal); D63.1 Anemia in chronic kidney disease; I12.9 Hypertensive chronic kidney disease with stage 1 through stage 4 chronic kidney disease, or unspecified chronic kidney disease
CPT/HCPCS: J0881

== ENCOUNTER 2019-12-27 11:40 | Outpatient (CLI) | payer MEDICARE, BC ==
[~2019-12-27] VITALS: Ht 177.8 cm; Wt 82.0 kg
[2019-12-27] VITALS (7 sets, daily range): BP systolic 102–154; BP diastolic 44–68; PULSE 60–73; TEMP 97.4
[2019-12-27] MEDS ORDERED: TOPROL XL 25MG25 MG PO (12:06)
[2019-12-27] MEDS ORDERED: PROCRIT 1010 MU/VIAL SQ (12:10)
--- NOTE | 2019-12-27 13:53 | NUR ---
SEE MERGE DOCUMENTATION FOR MEDICATION ADMINISTRATION TIMES AND INTRA/POST PROCEDURE SEDATION ASSESSMENTS.
--- NOTE | 2019-12-27 15:00 | NUR ---
Back from [employer] Professor by bed. Bandaid to left fistula CD&I. VSS. Dr. Adams (son) bedside
--- NOTE | 2019-12-27 16:10 | NUR ---
INT discontinued intact. Discharge instructions given to pt/son. Transferred to private car by greta
== END 2019-12-27 16:15 | disposition home or self-care (01) ==
LOC: COL.CAR 11:40
DX: T82.858A Stenosis of other vascular prosthetic devices, implants and grafts, initial encounter (principal); N18.6 End stage renal disease; Z99.2 Dependence on renal dialysis; Z88.0 Allergy status to penicillin; Z88.2 Allergy status to sulfonamides; Z79.01 Long term (current) use of anticoagulants; Z79.82 Long term (current) use of aspirin; Z87.891 Personal history of nicotine dependence
CPT/HCPCS: J1644; J2250; J3010; J7050; Q9967

== ENCOUNTER 2020-06-19 09:20 | Inpatient (IN) | payer MEDICARE, BC ==
[2020-06-19] VITALS (7 sets, daily range): BP systolic 78–135; BP diastolic 46–70; PULSE 62–92; TEMP 97.5–98.3
[~2020-06-19] VITALS: Ht 177.8 cm; Wt 79.2 kg
[~2020-06-19 09:20] MED LIST changes: +PROCRIT 1010 MU/VIAL SQ
[2020-06-19 12:43] LABS: BASO % 0.3 % (0.0-2.0); EOS # 0.6 (0.0-0.7); EOS % 9.7 % (0-4.0); GRAN % 67.3 % (42.2-75.2); HEMOGLOBIN 11.2 g/dl (13.5-18.0); LYMPH # 0.8 (1.2-3.4); LYMPH % 13.2 % (20.0-51.0); MEAN CELL VOLUME 93 fl (80.0-100.0); MEAN CORPUSCULAR HEMOGLOBIN 29 pg (27.0-31.0); MEAN CORPUSCULAR HGB CONC 31 g/dl (33.0-37.0); MEAN PLATELET VOLUME 10.7 fl (7.4-10.4); MONO # 0.5 (0.1-0.6); PLATELET COUNT 198 K/mm3 (130-400); RED BLOOD COUNT 3.85 M/mm3 (4.20-5.60); REDCELL DISTRIBUTION WIDTH-CV 13.8 % (11.5-14.5)
[2020-06-19 12:45] LABS: HEMATOCRIT 35.7 % (42.0-52.0)
[2020-06-19 12:58] LABS: INR 1.2 (0.8-3.0); PROTHROMBIN TIME 13.6 SECONDS (9.7-12.8)
[2020-06-19 13:01] LABS: PARTIAL THROMBOPLASTIN TIME 31.2 SECONDS (26.0-37.0)
[2020-06-19 13:05] LABS: ALBUMIN 3.3 gm/dL (3.5-5.0); BILIRUBIN,TOTAL 0.5 mg/dL (0.0-1.0); CALCIUM 9.1 mg/dL (8.4-10.2); CREATININE, serum 2.75 (0.66-1.25); IRON,SERUM 29 ug/dL (35-150); POTASSIUM 4.5 mmol/L (3.4-5.0); TOTAL PROTEIN 6.9 gm/dL (6.4-8.2)
[2020-06-19 13:15] LABS: TOTAL IRON BINDING CAPACITY 221 ug/dL (261-462)
--- NOTE | 2020-06-19 14:00 | NUR ---
Pt arrived to medical unit room 351 around 1230. Admission assessments and med rec completed. IV started to right AC. Pt accompanied by son, Thad. Medical history and meds obtained from son due to pt having difficulty with memory. 3+ edema to BLE. Generalized dry flaking skin. Heart RRR. Lungs CTA. A&Ox4. Consent for dialysis cath placement signed and placed on chart. Denies other needs at this time. Contiuing to monitor.
--- NOTE | 2020-06-19 15:46 | NUR ---
SEE MERGE DOCUMENTATION FOR MEDICATION ADMINISTRATION TIMES AND INTRA/POST PROCEDURE SEDATION ASSESSMENTS.
--- NOTE | 2020-06-19 16:20 | NUR ---
Pt back up to room. Post-op vitals started. Vitals stable and dialysis catheter w/o signs of complication. Continuing to monitor.
--- NOTE | 2020-06-19 17:10 | NUR ---
Pt taken to dialysis at this time by bed. Vitals remain stable.
[2020-06-20 04:01] VITALS: BP 122/53; PULSE 74; TEMP 97.4
--- NOTE | 2020-06-20 08:27 | NUR ---
PT CURRENTLY GETTING AN ECHO.
[2020-06-20 09:49] LABS: BASO % 0.6 % (0.0-2.0); EOS # 0.4 (0.0-0.7); EOS % 7.8 % (0-4.0); GRAN # 3.7 (1.4-6.5); GRAN % 69.4 % (42.2-75.2); HEMOGLOBIN 10.3 g/dl (13.5-18.0); LYMPH # 0.7 (1.2-3.4); LYMPH % 12.5 % (20.0-51.0); MEAN CELL VOLUME 91 fl (80.0-100.0); MEAN CORPUSCULAR HEMOGLOBIN 29 pg (27.0-31.0); MEAN CORPUSCULAR HGB CONC 32 g/dl (33.0-37.0); MEAN PLATELET VOLUME 11.5 fl (7.4-10.4); MONO # 0.5 (0.1-0.6); MONO % 9.1 % (1.7-9.3); PLATELET COUNT 184 K/mm3 (130-400); RED BLOOD COUNT 3.55 M/mm3 (4.20-5.60); REDCELL DISTRIBUTION WIDTH-CV 13.6 % (11.5-14.5)
[2020-06-20 09:52] LABS: ALBUMIN 2.9 gm/dL (3.5-5.0); CALCIUM 8.4 mg/dL (8.4-10.2); CREATININE, serum 2.48 (0.66-1.25); PHOSPHOROUS 3.6 mg/dL (2.5-4.5); POTASSIUM 4.4 mmol/L (3.4-5.0)
[2020-06-20 09:54] LABS: HEMATOCRIT 32.4 % (42.0-52.0)
[2020-06-20] MEDS ORDERED: DEMADEX5 MG PO (09:58)
[2020-06-20] MEDS ORDERED: ANTI-DIARRHEAL2 MG PO (10:00)
[2020-06-20] MEDS ORDERED: NEPHROCAP PO (10:01)
--- NOTE | 2020-06-20 10:07 | NUR ---
PT CURRENTLY IN DIALYSIS, PT WILL DISCHARGE FROM DIALYSIS WITH SON. DR. POORNIMA OREILLY. PT USED CANE, AND WALKER TO TRANSFER AT DIALYSIS. GENERALIZED WEAKNESS. PT IS COMFORTABLE WITH DISCHARGING HOME WITH SON. NO FURTHER CONCERNS. DR KENNEDY IS AT BEDSIDE AT THIS TIME.
--- NOTE | 2020-06-20 13:50 | NUR ---
Primary nurse was assisted with [phone] patient care by [employer] student Irwin Power and [employer] instructor Mónica Spann RN-BC.
[2020-06-20 18:03] LABS: HEPATITIS B SURFACE ANTIBODY <2.0 (()); HEPATITIS C VIRUS ANTIBODY Negative (Negative)
== END 2020-06-20 11:45 | disposition home or self-care (01) | DRG 640 ==
LOC: MEDICAL 09:20
PROVIDERS: ADMIT Internal Medicine Nephrology
PROC: 0JH63XZ Insertion of Tunneled Vascular Access Device into Chest Subcutaneous Tissue and Fascia, Percutaneous Approach (ICD-10-PCS; principal; 2020-06-19)
PROC: 02H633Z Insertion of Infusion Device into Right Atrium, Percutaneous Approach (ICD-10-PCS; 2020-06-19)
PROC: 5A1D70Z Performance of Urinary Filtration, Intermittent, Less than 6 Hours Per Day (ICD-10-PCS; 2020-06-19)
DX: E87.5 Hyperkalemia (principal); N18.6 End stage renal disease; E46 Unspecified protein-calorie malnutrition; J90 Pleural effusion, not elsewhere classified; E11.22 Type 2 diabetes mellitus with diabetic chronic kidney disease; D63.1 Anemia in chronic kidney disease; E78.5 Hyperlipidemia, unspecified; I25.10 Atherosclerotic heart disease of native coronary artery without angina pectoris; Z95.1 Presence of aortocoronary bypass graft; M10.9 Gout, unspecified; Z85.828 Personal history of other malignant neoplasm of skin; Z79.82 Long term (current) use of aspirin
CPT/HCPCS: J1644; J2250; J2916; J3010; J7030

== ENCOUNTER 2020-11-29 22:27 | Inpatient (IN) | payer MEDICARE, BC ==
[~2020-11-29] VITALS: Ht 177.8 cm; Wt 72.6 kg
[~2020-11-29 22:27] MED LIST changes: +ANTI-DIARRHEAL2 MG PO; +NEPHROCAP PO
[2020-11-29 23:01] LABS: ARTERIAL BLD GAS O2 SATURATION 90.7 % (92-100); ARTERIAL BLD GAS TCO2 CT 26.4; ARTERIAL BLOOD GAS BASE EXCESS 1.5 (-2-2); ARTERIAL BLOOD GAS HCO3 25.3 meq/L (22-26); ARTERIAL BLOOD GAS PCO2 36.7 mmHg (35-45); ARTERIAL BLOOD GAS PO2 56.2 mmHg (80-100); ARTERIAL BLOOD GAS pH 7.46 (7.35-7.45)
[2020-11-29 23:03] LABS: HEMOGLOBIN 11.6 g/dl (13.5-18.0); MEAN CELL VOLUME 100 fl (80.0-100.0); MEAN CORPUSCULAR HEMOGLOBIN 32 pg (27.0-31.0); MEAN CORPUSCULAR HGB CONC 32 g/dl (33.0-37.0); PLATELET COUNT 159 K/mm3 (130-400); RED BLOOD COUNT 3.66 M/mm3 (4.20-5.60)
[2020-11-29 23:09] LABS: HEMATOCRIT 36.7 % (42.0-52.0)
[2020-11-29 23:13] LABS: PARTIAL THROMBOPLASTIN TIME 31.6 SECONDS (26.0-37.0)
[2020-11-29 23:14] LABS: INR 1.3 (0.8-3.0); PROTHROMBIN TIME 14.1 SECONDS (9.7-12.8)
[2020-11-29 23:19] LABS: ALBUMIN 3.8 gm/dL (3.5-5.0); BILIRUBIN,TOTAL 1.1 mg/dL (0.0-1.0); C-REACTIVE PROTEIN 1.7 mg/dL (0.0-0.9); CALCIUM 9.4 mg/dL (8.4-10.2); CREATININE, serum 2.46 (0.66-1.25); POTASSIUM 5.6 mmol/L (3.4-5.0); TOTAL PROTEIN 7.8 gm/dL (6.4-8.2)
[2020-11-29 23:34] LABS: BAND 3 % (0-10); LYMPHOCYTE 40 % (20.0-51.0); METAMYELOCYTE 1 % (0-0); NEUTROPHILS 53 % (42.0-75.2); PLATELET ESTIMATE NORMAL (NORMAL)
[2020-11-29 23:35] LABS: ANISOCYTOSIS 1+; OVALOCYTES 1+; POIKILOCYTOSIS 1+; TROPONIN-I 0.077 ng/mL (0.000-0.035)
[2020-11-29 23:36] LABS: ERYTHROCYTE SEDIMENTATION RATE 13 mm/hr (0-30)
[2020-11-30] MEDS ORDERED: DEMADEX10 MG PO (02:24)
--- NOTE | 2020-11-30 02:55 | NUR ---
PT ADMIT PER CART FROM ER. PT SON AFIA AT BEDSIDE TO ASSIST WITH ASSESSMENT AND HX. PT DENIES PAIN, SOA OR DISCOMFORT AT THIS TIME. NO NAUSEA. DID HAVE A BM AFTER ER GAVE MED. IV FLUSHED. LEFT ARM IMMATURE FISTULA. RT CHEST PORT A CATH- FOR DIAYLSIS, GETS M/W/F. STARTED FEELING FATIGUE, SOA, WITH CHILLS TONIGHT.RT LOWER EXTREMTY W CELLULTIS. SCD ORDERED, PT SON AFIA REFUSED TO BOTH LEG AND ASKED TO LET HIM REST TONIGHT. POC DISCUSSED, MEDS REVIEWED, DR REED WILL BE IN THIS AM TO SEE PT. CALL LIGHT WI REACH. SON NUMBER ON BOARD. BED ALARM ON PT DOES HAVE SOME SHORT TERM MEMORY LOSS AND SUNDOWNERS. RESTING QUIELTY NOW.
--- NOTE | 2020-11-30 06:31 | NUR ---
rested through the night without incident. Needs met.
[2020-11-30 06:48] VITALS: BP 119/27; PULSE 82; TEMP 98
--- NOTE | 2020-11-30 07:00 | NUR ---
Report received from CINDY Cooper. pt in bed resting with eyes closed, will continue to monitor.
--- NOTE | 2020-11-30 08:47 | NUR ---
Assessment charted. Spoke with son on phone earlier and he is here as well at bedside at this tme. Called Rahel, DAYLIN and Jayme will be in to see the pt this morning. Resting quietly, ate breakfast well, able to tell me the month but not aware of date or year, knows where he is and his own . Pt agreeable to plan of care, assisted with calling on the room phone. INT to RFA and R a/c. LFA failed fistula. RUC HD catheter. Denies any pain, will continue to monitor.
[2020-11-30 11:11] VITALS: BP 95/59; PULSE 83; TEMP 98.4
[2020-11-30] MEDS ORDERED: REGLAN 5MG T5 MG/TAB PO (11:20)
[2020-11-30 12:48] LABS: MEAN CELL VOLUME 102 fl (80.0-100.0); MEAN CORPUSCULAR HGB CONC 31 g/dl (33.0-37.0); MEAN PLATELET VOLUME 11.5 fl (7.4-10.4); PLATELET COUNT 154 K/mm3 (130-400); RED BLOOD COUNT 3.17 M/mm3 (4.20-5.60); REDCELL DISTRIBUTION WIDTH-CV 14.2 % (11.5-14.5)
[2020-11-30 12:52] LABS: HEMATOCRIT 32.4 % (42.0-52.0); HEMOGLOBIN 9.9 g/dl (13.5-18.0); MEAN CORPUSCULAR HEMOGLOBIN 31 pg (27.0-31.0)
[2020-11-30 12:56] LABS: ALBUMIN 3.2 gm/dL (3.5-5.0); CALCIUM 8.9 mg/dL (8.4-10.2); CREATININE, serum 3.04 (0.66-1.25); PHOSPHOROUS 4.6 mg/dL (2.5-4.5); POTASSIUM 4.7 mmol/L (3.4-5.0)
[2020-11-30] MEDS ORDERED: IMODIUM 2MG CAPS2 MG PO (13:44)
--- NOTE | 2020-11-30 14:17 | NUR ---
Plans to return home with Angela. SW met with patient about care. Patient reports that he resides locally. Patient indicated that his PCP is Dr. Delacruz and Dr. Salinas. Patient shares that he recently had a pacenaker placed on the right side. Patient shares that he has short term memory issues. Patient reports that his son Thad is care support. Patient reports that he prefers [employer]. Patient reports that he is feeling that his health is different and can not remember. Will follow for additional care concerns.
[2020-11-30 16:00] VITALS: BP 124/101; BP 97/34; PULSE 74; TEMP 98.6
--- NOTE | 2020-11-30 18:58 | NUR ---
Report given to nightshift nruse. Pt resting in bed, doing well, taking PO well, denies needs, nightshift to resume care.
[2020-11-30 19:08] VITALS: BP 136/65; PULSE 83; TEMP 98.3
--- NOTE | 2020-11-30 21:47 | NUR ---
Pt has been pretty good. Pain rated 0/10. Son visited seven. Vss. Will continue to monitor.
[2020-12-01] VITALS (8 sets, daily range): BP systolic 77–145; BP diastolic 44–86; PULSE 66–92; TEMP 97.6–98.7
[2020-12-01 06:25] LABS: MEAN CELL VOLUME 99 fl (80.0-100.0); MEAN CORPUSCULAR HGB CONC 32 g/dl (33.0-37.0); MEAN PLATELET VOLUME 11.6 fl (7.4-10.4); PLATELET COUNT 140 K/mm3 (130-400); RED BLOOD COUNT 2.85 M/mm3 (4.20-5.60); REDCELL DISTRIBUTION WIDTH-CV 14.4 % (11.5-14.5)
[2020-12-01 06:31] LABS: HEMATOCRIT 28.1 % (42.0-52.0); MEAN CORPUSCULAR HEMOGLOBIN 32 pg (27.0-31.0)
[2020-12-01 06:38] LABS: GRAN % 89.8 % (42.2-75.2)
[2020-12-01 06:39] LABS: ALBUMIN 2.8 gm/dL (3.5-5.0); BASO % 0.1 % (0.0-2.0); CALCIUM 8.9 mg/dL (8.4-10.2); CREATININE, serum 3.5 (0.66-1.25); LYMPH % 4.6 % (20.0-51.0); POTASSIUM 4.3 mmol/L (3.4-5.0)
[2020-12-01 06:40] LABS: GRAN # 12.4 (1.4-6.5); LYMPH # 0.6 (1.2-3.4); MONO # 0.7 (0.1-0.6)
--- NOTE | 2020-12-01 08:00 | NUR ---
PATIENT IS VERY DROWSY AND CONFUSED TO PLACE, ORIENTED TO PERSON. PATIENT ASKED IF HE WAS IN [place] OR [place]. NURSING RE-ORIENTED PATIENT EASILY. VSS. DENIES PAIN OR SOA. NOTED DEMINISHED A&P LUNG BASES. RLE IS RED AND WITH +3 EDEMA. LLE HAS +2 EDEMA. PATIENT HAS HX OF CHF, A-FIB AND IS A DIALYSIS PATIENT. PATIENT LAST HAD DIALYSIS ON WEDNESDAY. TOLERATING RENAL/ADA DIET. NO C/O N/V. RIGHT AC IV TO INT. 1500 CC FLUID RESTRICTION. AM MEDS GIVEN. BREAKFAST TRAY ORDERED. AM BS WAS 114, NO SSI REQUIRED. HEAD TO TOE ASSESSMENT COMPLETE. NO OTHER NEEDS. CALL LIGHT IN REACH. BED ALARM ON.
--- NOTE | 2020-12-01 12:15 | NUR ---
AT BEDSIDE VISITING WITH PATIENT & SON.
--- NOTE | 2020-12-01 22:43 | NUR ---
Pt seems different tonight. He was yelling for tooth pick or floss. I was able to provide him one. He was supposed to facetime his tonight but i was unable to connect. Currently talking to his . will continue to monitor.
[2020-12-02 02:47] VITALS: BP 111/43; PULSE 88; TEMP 98
[2020-12-02 07:51] VITALS: BP 97/62; PULSE 79; TEMP 97.8
--- NOTE | 2020-12-02 08:00 | NUR ---
PATIENT IS ORIENTED X3 BUT OCCATIONALLY DISPLAYS SOME FORGETFULNESS. PATIENT IS GENERALLY ORIENTED TO SITUATION. NOTED SOFT PRESSURES OF 97/62, DIALYSIS NURSE REQUESTED TO HOLD DEMEDEX THIS AM. ALL OTHER VSS ON TELE. NO C/O PAIN OR SOA. PATIENT ASSISTED TO BEDSIDE CHAIR WITH BREAKFAST TRAY. PATIENT TOLERATING RENAL/ADA DIET. AM MEDS GIVEN. HEAD TO TOE ASSESSMENT COMPLETE, SEE SHIFT ASSESSMENT. PATIENT WILL GET DIALYSIS TODAY AFTER BREAKFAST. NO OTHER NEEDS AT THIS TIME. CALL LIGHT IN REACH.
--- NOTE | 2020-12-02 09:00 | NUR ---
PATIENT GOING DOWNT TO DIALYSIS
[2020-12-02 10:01] LABS: BASO % 0.2 % (0.0-2.0); EOS # 0.1 (0.0-0.7); EOS % 0.9 % (0-4.0); GRAN # 7.5 (1.4-6.5); GRAN % 83.3 % (42.2-75.2); HEMATOCRIT 30.5 % (42.0-52.0); HEMOGLOBIN 9.6 g/dl (13.5-18.0); LYMPH % 10.7 % (20.0-51.0); MEAN CELL VOLUME 100 fl (80.0-100.0); MEAN CORPUSCULAR HEMOGLOBIN 31 pg (27.0-31.0); MEAN CORPUSCULAR HGB CONC 32 g/dl (33.0-37.0); MEAN PLATELET VOLUME 11.8 fl (7.4-10.4); MONO # 0.4 (0.1-0.6); MONO % 4.2 % (1.7-9.3); PLATELET COUNT 145 K/mm3 (130-400); RED BLOOD COUNT 3.05 M/mm3 (4.20-5.60); REDCELL DISTRIBUTION WIDTH-CV 14.4 % (11.5-14.5)
[2020-12-02 10:08] LABS: CALCIUM 8.3 mg/dL (8.4-10.2); CREATININE, serum 4.19 (0.66-1.25); PHOSPHOROUS 4.8 mg/dL (2.5-4.5); POTASSIUM 3.8 mmol/L (3.4-5.0)
--- NOTE | 2020-12-02 13:46 | NUR ---
Patient tolerated HD tx with 700 mL fluid removal today. Next planned HD tx on Wednesday12/04/20 @ 0800.
[2020-12-02 16:55] VITALS: BP 105/32; PULSE 84; TEMP 98
--- NOTE | 2020-12-02 20:00 | NUR ---
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 Refusing Nephro drink tonight- sitting in recliner- states he would like to stay there for a few more hours before getting back to bed-call light in reach
[2020-12-02 22:21] VITALS: PULSE 80; TEMP 97.5
[2020-12-02 22:41] VITALS: BP 147/64
[2020-12-03 00:49] VITALS: BP 96/40; PULSE 80; TEMP 98.1
[2020-12-03 04:53] VITALS: BP 90/54; PULSE 59; TEMP 98.1
--- NOTE | 2020-12-03 05:08 | NUR ---
Quiet night- VSS, Up to bathroom with assist- only voids drops of urine,, SCD,s to bilateral legs, denies AJ
[2020-12-03 07:29] LABS: BASO % 0.3 % (0.0-2.0); EOS # 0.2 (0.0-0.7); EOS % 3.2 % (0-4.0); GRAN # 4.2 (1.4-6.5); GRAN % 70.9 % (42.2-75.2); LYMPH # 1.1 (1.2-3.4); LYMPH % 18.3 % (20.0-51.0); MEAN CELL VOLUME 100 fl (80.0-100.0); MEAN CORPUSCULAR HGB CONC 31 g/dl (33.0-37.0); MEAN PLATELET VOLUME 11.4 fl (7.4-10.4); MONO # 0.4 (0.1-0.6); MONO % 6.3 % (1.7-9.3); PLATELET COUNT 135 K/mm3 (130-400); RED BLOOD COUNT 3.07 M/mm3 (4.20-5.60); REDCELL DISTRIBUTION WIDTH-CV 14.2 % (11.5-14.5)
[2020-12-03 07:30] LABS: HEMATOCRIT 30.7 % (42.0-52.0); HEMOGLOBIN 9.6 g/dl (13.5-18.0); MEAN CORPUSCULAR HEMOGLOBIN 31 pg (27.0-31.0)
[2020-12-03 07:37] LABS: ALBUMIN 2.8 gm/dL (3.5-5.0); CALCIUM 8.3 mg/dL (8.4-10.2); CREATININE, serum 2.79 (0.66-1.25); PHOSPHOROUS 3.7 mg/dL (2.5-4.5); POTASSIUM 3.7 mmol/L (3.4-5.0)
--- NOTE | 2020-12-03 08:55 | NUR ---
Dr Weaver recently in with pt for thoracentesis. Pt tolerated with no complaints. Pt has had breakfast, no needs at this time. Son at bedside, will continue to monitor
[2020-12-03 09:38] LABS: PLEURAL FLUID RBC 1000 /mm3 (0-0); PLEURAL FLUID WBC 190 /mm3
[2020-12-03 09:41] LABS: PLEURAL FLUID APPEARANCE CLEAR; PLEURAL FLUID COLOR YELLOW
[2020-12-03 09:46] LABS: GLUCOSE,PLEURAL FLUID 124 mg/dL; TOTAL PROTEIN,PLEURAL FLUID 2.3 gm/dL
--- NOTE | 2020-12-03 09:52 | NUR ---
Patient is lying in bed resting. He is alert bud no t able to identify month or place. He is able to answer coherently. His skin is very dry, has edema in his RLE, some redness and warm. He had 2 IV access, one is droping and discontinued. He has redness in his bottom, a foam bandage is in place, promoted repositioned was done. Has a bump in the left arm, it was supose to be a fistula, according with patient it never worked. No further needs right now. Call light within reach.
[2020-12-03 10:03] VITALS: BP 122/52; PULSE 65; TEMP 97.6
--- NOTE | 2020-12-03 10:07 | NUR ---
Patient has been stable, unable to take VS since he has had mulple visits.
[2020-12-03] MEDS ORDERED: DEMADEX10 MG PO (10:33)
[2020-12-03] MEDS ORDERED: CEPHALEXIN500 M1 PO (10:35)
--- NOTE | 2020-12-03 11:00 | NUR ---
Dr Delacruz in to see pt, orders wrote for discharge
[2020-12-03 11:38] LABS: COLLECTION METHOD CLEAN CATCH
--- NOTE | 2020-12-03 11:43 | NUR ---
Discharge instructions were reviewed with patient and son, questions answered. INT removed. Patient walked out with a wheelchair by staff.
[2020-12-03 11:45] LABS: PH 5 (5-8); SQUAMOUS EPITHELIAL 0-2 /hpf; URINE APPEARANCE Hazy; URINE BACTERIA None Seen /hpf; URINE BILIRUBIN Negative (NEGATIVE); URINE BLOOD Negative (NEGATIVE); URINE COLOR Yellow; URINE GLUCOSE Negative (NEGATIVE); URINE KETONE Trace (NEGATIVE); URINE LEUKOCYTE ESTERASE Negative (NEGATIVE); URINE NITRATE Negative (NEGATIVE); URINE PROTEIN(semi-quant) 2+ (NEGATIVE); URINE RBC 0-2 /hpf; URINE UROBILINOGEN Negative (NEGATIVE)
[2020-12-03 22:56] LABS: BODY FLUID PH (AMS) 8 (())
[2021-02-21] MEDS ORDERED: REGLAN 5MG T5 MG/TAB PO (08:31)
[2021-02-21] MEDS ORDERED: ASPIRIN E.C. 8181 MG PO (08:32)
[2021-02-21] MEDS ORDERED: RENO CAPS1 SGL PO (08:32)
[2021-02-21] MEDS ORDERED: FLOMAX 0.40.4 MG/CAP PO (08:32)
[2021-02-21] MEDS ORDERED: DEMADEX10 MG PO (08:33)
[2021-02-21] MEDS ORDERED: OMEGA-3 1000 MG1 CAP PO (08:34)
== END 2020-12-03 11:48 | disposition home or self-care (01) | DRG 871 ==
LOC: COL.ER 22:27 → SURG 11-30 00:33
PROVIDERS: Emergency Medicine; Internal Medicine Pulmonary Disease; ADMIT Internal Medicine Nephrology
PROC: 5A1D70Z Performance of Urinary Filtration, Intermittent, Less than 6 Hours Per Day (ICD-10-PCS; 2020-12-02)
PROC: 0W9B3ZZ Drainage of Left Pleural Cavity, Percutaneous Approach (ICD-10-PCS; principal; 2020-12-03)
DX: A41.9 Sepsis, unspecified organism (principal); N18.6 End stage renal disease; I13.2 Hypertensive heart and chronic kidney disease with heart failure and with stage 5 chronic kidney disease, or end stage renal disease; E46 Unspecified protein-calorie malnutrition; L03.115 Cellulitis of right lower limb; J90 Pleural effusion, not elsewhere classified; E87.5 Hyperkalemia; Z20.822 Contact with and (suspected) exposure to COVID-19; R41.3 Other amnesia; Z95.0 Presence of cardiac pacemaker; I44.1 Atrioventricular block, second degree; E11.22 Type 2 diabetes mellitus with diabetic chronic kidney disease; I50.9 Heart failure, unspecified; Z95.1 Presence of aortocoronary bypass graft; I25.10 Atherosclerotic heart disease of native coronary artery without angina pectoris; E78.5 Hyperlipidemia, unspecified; I48.91 Unspecified atrial fibrillation; E11.40 Type 2 diabetes mellitus with diabetic neuropathy, unspecified; E11.319 Type 2 diabetes mellitus with unspecified diabetic retinopathy without macular edema; N40.0 Benign prostatic hyperplasia without lower urinary tract symptoms; M54.12 Radiculopathy, cervical region; D63.1 Anemia in chronic kidney disease; Z99.2 Dependence on renal dialysis; E21.3 Hyperparathyroidism, unspecified; E11.43 Type 2 diabetes mellitus with diabetic autonomic (poly)neuropathy; K31.84 Gastroparesis; R53.82 Chronic fatigue, unspecified; K52.89 Other specified noninfective gastroenteritis and colitis; Z79.82 Long term (current) use of aspirin; Z87.891 Personal history of nicotine dependence; Z88.0 Allergy status to penicillin; Z88.2 Allergy status to sulfonamides
CPT/HCPCS: J0456; J0690; J0692; J1100; J1644; J1815; J7030; J7050; Q5105

== ENCOUNTER → 2021-01-14 | Outpatient (CLI) | payer MEDICARE, BC ==
[~2021-01-14] MED LIST changes: +DEMADEX10 MG PO; +REGLAN 5MG T5 MG/TAB PO; +RENO CAPS1 SGL PO
== END ==
LOC: COL.RAD 15:07
DX: J90 Pleural effusion, not elsewhere classified (principal)

== ENCOUNTER → 2021-02-25 | Outpatient (CLI) | payer MEDICARE, BC ==
[~2021-02-25] VITALS: Ht 177.8 cm; Wt 74.4 kg
[2021-02-25 09:23] VITALS: BP 125/73; PULSE 79; TEMP 97.8
[2021-02-25 10:36] VITALS: BP 130/71; PULSE 68
--- NOTE | 2021-02-25 11:47 | NUR ---
pt leaves with his son in wheelchair after second cxr completed. no problems noted.
== END ==
LOC: COL.RAD 08:42
DX: J90 Pleural effusion, not elsewhere classified (principal)
CPT/HCPCS: 19804

== ENCOUNTER 2021-07-10 10:13 | Outpatient (CLI) | payer MEDICARE, BC ==
[~2021-07-10] VITALS: Ht 177.8 cm; Wt 76.6 kg
[2021-07-10] MEDS ORDERED: PACERONE100 MG PO (10:36)
[2021-07-10] MEDS ORDERED: PHOS LO PO (10:38)
[2021-07-10 10:40] VITALS: BP 113/57; PULSE 71; TEMP 98.1
[2021-07-10 13:34] VITALS: BP 108/53; PULSE 73
[2021-07-10 13:45] VITALS: BP 111/51; PULSE 69
[2021-07-10 14:00] VITALS: BP 105/56; PULSE 68
--- NOTE | 2021-07-10 14:08 | NUR ---
DC instructions reviewed with pt and son, both express understanding. Pt tolerating PO fluids without issue. INT DC'd with catheter intact. He is assisted to dress. He transfers from bed to wheelchair with standby assist. He is assited out to son's car by wheelchair with belongings.
== END 2021-07-10 14:15 | disposition home or self-care (01) ==
LOC: COL.CAR 10:13
DX: T82.41XA Breakdown (mechanical) of vascular dialysis catheter, initial encounter (principal); N18.6 End stage renal disease; I51.9 Heart disease, unspecified; Z99.2 Dependence on renal dialysis
CPT/HCPCS: J1644